=== PATIENT | male | born 1970 ===

== ENCOUNTER 2016-12-25 15:04 | Emergency (ER) | payer SELFPAY ==
[2016-12-25 15:05] VITALS: BMI 29.2
[2016-12-25 15:11] VITALS: RESP 16
[2016-12-25 17:58] VITALS: BP 100/62; PULSE 82; TEMP 98.4; O2SAT 98
--- NOTE | 2016-12-25 18:39 | C.PDOC ---
History Of Present Illness <Maral Wilburn - Last Filed: 12/25/16 19:08> <Marcio Spence - Last Filed: 12/25/16 20:15> Ady Matthews, a 46 year old male, who has a past medical history of bipolar disorder presents to the ED for detox. The patient states that he is depressed and has been drinking everyday and so he needs a detox. Patient's last alcohol consumption was 30 minutes prior to arrival. (Maral Wilburn) History Per: Patient History/Exam Limitations: no limitations Onset/Duration Of Symptoms: Hrs Current Symptoms Are (Timing): Still Present Modifying Factor(s): Alcohol <Maral Wilburn - Last Filed: 12/25/16 19:08> <Marcio Spence - Last Filed: 12/25/16 20:15> Time Seen by Provider: 12/25/16 16:44 Chief Complaint (Nursing): Substance Abuse Past Medical History Reviewed: Historical Data, Nursing Documentation, Vital Signs - Medical History PMH: Anxiety, Bipolar Disorder, Depression Denies: Diabetes, Hepatitis, HIV, HTN, Chronic Kidney Disease, Seizures, Sexually Transmitted Disease Family History: States: Unknown Family Hx - Social History Hx Tobacco Use: No Hx Alcohol Use: Yes Hx Substance Use: No - Immunization History Hx Tetanus Toxoid Vaccination: No Hx Influenza Vaccination: No <Maral Wilburn - Last Filed: 12/25/16 19:08> Review Of Systems Except As Marked, All Systems Reviewed And Found Negative. (Detox) <Maral Wilburn - Last Filed: 12/25/16 19:08> Physical Exam - Physical Exam Appears: Well, Toxic, No Acute Distress Skin: Normal Color, Warm, Dry Head: Atraumatic, Normacephalic, No Tenderness Eye(s): bilateral: Normal Inspection, PERRL, EOMI Ear(s): Bilateral: Normal Nose: Normal Oral Mucosa: Moist Tongue: Normal Appearing Lips: Normal Appearing Teeth: Normal Dentition Gingiva: Normal Appearing Throat: Normal Neck: Normal, Normal ROM, Supple Cardiovascular: Rhythm Regular Respiratory: Normal Breath Sounds, No Wheezing Gastrointestinal/Abdominal: Normal Exam, Bowel Sounds, Soft, No Tenderness, No Guarding, No Rebound Back: Normal Inspection, No CVA Tenderness Extremity: Normal ROM, No Tenderness, Capillary Refill, No Deformity, No Swelling <Maral Wilburn - Last Filed: 12/25/16 19:08> ED Course And Treatment - Laboratory Results Result Diagrams: 12/25/16 19:01 O2 Sat by Pulse Oximetry: 98 (RA) Pulse Ox Interpretation: Normal <Maral Wilburn - Last Filed: 12/25/16 19:08> - Laboratory Results Result Diagrams: 12/25/16 19:01 12/25/16 19:01 <Marcio Spence - Last Filed: 12/25/16 20:15> Medical Decision Making <Maral Wilburn - Last Filed: 12/25/16 19:08> <Marcio Spence - Last Filed: 12/25/16 20:15> Medical Decision Making: Initial Impression: 46 year old male presenting for detox Initial Plan: * Alcohol Serum * Comp Metabolic Panel * Drug Screen * CBC * Urinalysis * Reevaluation Patient well be admitted for detox once medically cleared (Maral Wilburn) Disposition - Disposition Disposition Time: 19:09 <Maral Wilburn - Last Filed: 12/25/16 19:08> Counseled Patient/Family Regarding: Diagnosis - Disposition Disposition Time: 20:15 - POA Present On Arrival: None <Marcio Spence - Last Filed: 12/25/16 20:15> - Disposition Referrals: [facility] [Outside] Condition: STABLE Instructions: Abuse of Alcohol (ED) Forms: [facility] (Serbian) - Clinical Impression Clinical Impression: Alcohol abuse, Bipolar disorder - Scribe Statement The provider has reviewed the documentation as recorded by the Scribe <Maral Wilburn - Last Filed: 12/25/16 19:08> <Marcio Spence - Last Filed: 12/25/16 20:15> - Scribe Statement Macy Hunt All medical record entries made by the Scribe were at my direction and personally dictated by me. I have reviewed the chart and agree that the record accurately reflects my personal performance of the history, physical exam, medical decision making, and the department course for this patient. I have also personally directed, reviewed, and agree with the discharge instructions and disposition. (Maral Wilburn) Physician Patient Turnover Patient Signed Over To: Spence,Marcio R Handoff Comments: Needs to be medically cleared for detox admission. labs- pending <Maral Wilburn - Last Filed: 12/25/16 19:08>
[2016-12-25 19:06] LABS: BASO # 0.1 K/uL (0.0-0.2); BASO % 0.8 % (0.0-2.0); EOS # 0.5 K/uL (0.0-0.7); EOS % 6.9 % (0.0-4.0); HEMOGLOBIN 11.6 g/dL (12.0-18.0); LYMPH % 28.1 % (20.0-40.0); MEAN CELL VOLUME 78.9 fL (80.0-94.0); MEAN CORPUSCULAR HEMOGLOBIN 25.9 pg (27.0-31.0); MEAN CORPUSCULAR HGB CONC 32.8 g/dL (33.0-37.0); MEAN PLATELET VOLUME 7.5 fL (7.2-11.7); MONO # 0.6 K/uL (0.0-0.8); MONO % 7.9 % (0.0-10.0); NEUT % 56.3 % (50.0-75.0); RBC 4.48 Mil/uL (4.40-5.90); RED CELL DISTRIBUTION WIDTH 16.5 % (11.5-14.5)
[2016-12-25 19:14] LABS: ALBUMIN 3.6 g/dL (3.5-5.0)
[2016-12-25 19:17] LABS: ALB/GLOB RATIO 1.1 (1.0-2.1); ALT/SGPT 27 U/L (21-72); AST/SGOT 22 U/L (17-59); BLOOD UREA NITROGEN 7 mg/dL (9-20); GFR AFRICAN-AMERICAN > 60; GFR NON-AFRICAN AMERICAN > 60
[2016-12-25 19:18] LABS: CALCIUM 8.2 mg/dl (8.6-10.4); SQUAMOUS EPITHIAL < 1 /hpf (0-5); URINE BILIRUBIN NEGATIVE (NEGATIVE); URINE BLOOD 2+ (NEGATIVE); URINE CLARITY Clear (Clear); URINE COLOR Yellow (YELLOW); URINE GLUCOSE (UA) NORMAL (Normal); URINE LEUKOCYTE ESTERASE NEG Leu/uL (Negative); URINE NITRATE NEGATIVE (NEGATIVE); URINE PROTEIN NEGATIVE (NEGATIVE); URINE UROBILINOGEN NORMAL mg/dL (0.2-1.0)
[2016-12-25 19:24] LABS: BARBITURATES, UR NEGATIVE (NEGATIVE)
[2016-12-25 19:25] LABS: BENZODIAZEPINES, UR NEGATIVE (NEGATIVE)
[2016-12-25 19:28] LABS: OPIATES, UR NEGATIVE (NEGATIVE)
[2016-12-25 19:29] LABS: PHENCYCLIDINE, UR NEGATIVE (NEGATIVE)
== END 2016-12-25 20:24 | disposition home or self-care (01) ==
LOC: C.ER 15:04
DX: F31.9 Bipolar disorder, unspecified (principal); F10.10 Alcohol abuse, uncomplicated; Y90.2 Blood alcohol level of 40-59 mg/100 ml

== ENCOUNTER 2017-01-15 17:25 | Inpatient (IN) | payer SELFPAY ==
[2017-01-15 17:26] VITALS: BMI 29.2
--- NOTE | 2017-01-15 17:52 | C.PDOC ---
History Of Present Illness 46 y/o male with a history of alcohol abuse, depression, and bipolar disorder, who presents to the ED for psychiatric evaluation. States he has been drinking a lot and feeling like hurting himself, specifically having suicidal thoughts of cutting his wrists. Patient has history of suicide attempt 3 years ago, and was hospitalized at that time. On anti-anxiety and depression medications. PMD: Unknown Time Seen by Provider: 01/15/17 17:37 Chief Complaint (Nursing): Psychiatric Evaluation History Per: Patient History/Exam Limitations: no limitations Onset/Duration Of Symptoms: Days Current Symptoms Are (Timing): Still Present Associated Symptoms: Depression, Suicidal Thoughts Past Medical History Reviewed: Historical Data, Nursing Documentation, Vital Signs Vital Signs: Last Vital Signs Temp 98.2 F 01/15/17 17:32 Pulse 109 H 01/15/17 17:32 Resp 16 01/15/17 17:32 BP 120/72 01/15/17 17:32 Pulse Ox 95 01/15/17 17:56 - Medical History PMH: Anxiety, Bipolar Disorder, Depression Denies: Diabetes, Hepatitis, HIV, HTN, Chronic Kidney Disease, Seizures, Sexually Transmitted Disease Other PMH: Alcohol abuse - [facility] ALCOHOL DETOXIFICATION (01/06/14) DETOXIFICATION SERVICES FOR SUBSTANCE ABUSE TREATMENT (01/14/16) GROUP PSYCHOTHERAPY (01/14/16) INDIV CORPORATE BANKING OFFICER FOR SUBSTANCE ABUSE TREATMENT, BEHAVIORAL (10/23/15) INDIVID PSYCHOTHERAP NEC (08/05/14) INDIVIDUAL PSYCHOTHERAPY, SUPPORTIVE (01/14/16) INJECT/INFUSE NEC (09/26/13) OTHER GROUP THERAPY (08/05/14) PSYCHIAT DRUG THERAP NEC (08/05/14) Family History: States: Unknown Family Hx - Social History Hx Tobacco Use: No Hx Alcohol Use: Yes Hx Substance Use: No - Immunization History Hx Tetanus Toxoid Vaccination: No Hx Influenza Vaccination: No Review Of Systems Except As Marked, All Systems Reviewed And Found Negative. Psych: Positive for: Depression, Suicidal ideation (with plan) Physical Exam - Physical Exam Appears: Well, Non-toxic, No Acute Distress Skin: Normal Color, Warm, Dry Head: Atraumatic, Normacephalic Eye(s): bilateral: Normal Inspection, PERRL, EOMI Oral Mucosa: Moist Neck: Normal ROM, Supple Chest: Symmetrical Cardiovascular: Rhythm Regular, No Murmur Respiratory: Normal Breath Sounds, No Accessory Muscle Use Gastrointestinal/Abdominal: Normal Exam, Bowel Sounds, Soft, No Tenderness Extremity: Bilateral: Atraumatic, Normal ROM Neurological/Psych: Oriented x3, Normal Speech, Normal Motor Gait: Steady ED Course And Treatment - Laboratory Results Result Diagrams: 01/15/17 17:58 01/15/17 17:58 Lab Interpretation: No Acute Changes O2 Sat by Pulse Oximetry: 95 (RA) Pulse Ox Interpretation: Normal Progress Note: Patient is medically cleared for psychiatric admission. Medical Decision Making Medical Decision Making: Time: 17:47 Plan: --CMP --Urine drug screen --Alcohol serum --CBC --Urinalysis Disposition - Disposition Disposition: HOSPITALIZED Disposition Time: 19:18 Condition: STABLE Forms: [facility] (Polish) - Clinical Impression Clinical Impression: Bipolar disorder, Depressed, Alcohol abuse, Suicidal ideation - Scribe Statement The provider has reviewed the documentation as recorded by the Scribcarlotta Rush All medical record entries made by the Scribe were at my direction and personally dictated by me. I have reviewed the chart and agree that the record accurately reflects my personal performance of the history, physical exam, medical decision making, and the department course for this patient. I have also personally directed, reviewed, and agree with the discharge instructions and disposition.
[2017-01-15 18:02] LABS: BASO # 0.1 K/uL (0.0-0.2); BASO % 0.7 % (0.0-2.0); EOS # 0.5 K/uL (0.0-0.7); EOS % 6.6 % (0.0-4.0); HEMATOCRIT 36.3 % (35.0-51.0); LYMPH # 2.3 K/uL (1.0-4.3); LYMPH % 29.3 % (20.0-40.0); MEAN CELL VOLUME 78.6 fL (80.0-94.0); MEAN CORPUSCULAR HEMOGLOBIN 26.1 pg (27.0-31.0); MEAN CORPUSCULAR HGB CONC 33.2 g/dL (33.0-37.0); MEAN PLATELET VOLUME 7.7 fL (7.2-11.7); MONO # 0.8 K/uL (0.0-0.8); MONO % 9.8 % (0.0-10.0); RED CELL DISTRIBUTION WIDTH 16.2 % (11.5-14.5); WHITE BLOOD COUNT 7.9 K/uL (4.8-10.8)
[2017-01-15 18:06] LABS: URINE BILIRUBIN NEGATIVE (NEGATIVE); URINE BLOOD 1+ (NEGATIVE); URINE COLOR Colorless (YELLOW); URINE GLUCOSE (UA) NORMAL (Normal); URINE KETONE NEGATIVE (NEGATIVE); URINE LEUKOCYTE ESTERASE NEG Leu/uL (Negative); URINE PROTEIN NEGATIVE (NEGATIVE); URINE UROBILINOGEN NORMAL mg/dL (0.2-1.0)
[2017-01-15 18:11] LABS: CHLORIDE 102 mmol/L (98-107); SODIUM 141 mmol/L (132-148)
[2017-01-15 18:12] LABS: POTASSIUM 3.6 mmol/L (3.6-5.2)
[2017-01-15 18:14] LABS: ALB/GLOB RATIO 1.1 (1.0-2.1); ALKALINE PHOSPHATASE 94 U/L (38-126); ALT/SGPT 34 U/L (21-72); AST/SGOT 25 U/L (17-59); BILIRUBIN,TOTAL 0.4 mg/dL (0.2-1.3); BLOOD UREA NITROGEN 9 mg/dL (9-20); CARBON DIOXIDE 20 mmol/L (22-30); GFR AFRICAN-AMERICAN > 60; GLUCOSE,RANDOM 89 mg/dL (75-110); TOTAL PROTEIN 7.3 g/dL (6.3-8.3)
[2017-01-15 18:15] LABS: ALCOHOL SERUM 133 mg/dl (0-10)
[2017-01-16] MEDS: Multiple Vitamins Tab PO SCH (11:11)
--- NOTE | 2017-01-16 11:47 | PCM.PSYCH ---
Initial Psychiatric Evaluation - Initial Psychiatric Evaluation Type of Admission: Voluntary Legal Status: Capacity Chief Complaint (in patient's own words): I was hearing voices' History of Present Illness and Precipitating Events: Pt. is a 46 years old male, single, unemployed, who came to the hospital because of alcohol dependence, suicidal ideation, and auditory hallucinations. Pt. remained disorganized and internally preoccupied throughout the interview. He remained a poor historian and was superficially cooperative but guarded about the details. Patient reported auditory hallucinations for the past 3-6 months (voices laughing at him) and visual hallucinations (shadows staring at him).Patient revealed plan to use prescribed medications and alcohol "to cause a heart attack". Patient reports history of multiple inpatient psychiatric hospitalizations, he was last discharge from [facility] a year ago. He reports history of follow-up with [facility]. He reports that he was drinking 4-10 beers on a daily basis. Yesterday he consumed almost 8 beers and became increasingly depressed and suicidal ideation so he came to the hospital to get help. Patient remained depressed and irritable during the interview. He appeared paranoid and delusional. He reports depressed mood and feelings of hopelessness and helplessness, poor sleep and poor appetite. He appeared disheveled and unkempt. He reports withdrawal symptoms from drinking including shakes, headaches, nausea, sweating and anxiety. He denies any other substance abuse. Past medical history None reported Current Medications: Active Medications Generic Name Dose Route Start Last Admin Trade Name Freq PRN Reason Stop Dose Admin Benztropine Mesylate 2 mg 01/16/17 10:21 Cogentin PO Q6 PRN Extra Pyramidal Symptoms Chlordiazepoxide 25 mg 01/16/17 10:19 Librium PO Q4H PRN Alcohol Withdrawal Chlordiazepoxide 25 mg 01/16/17 12:00 01/16/17 11:11 Librium PO 01/20/17 11:59 25 mg Q6H EMILIA Administration Taper Clonidine HCl 0.1 mg 01/16/17 10:19 Catapres PO Q4H PRN Symptoms of alcohol withdrawl Diphenhydramine HCl 50 mg 01/16/17 10:21 Benadryl PO Q6 PRN Extra Pyramidal Symptoms Folic Acid 1 mg 01/16/17 10:30 01/16/17 11:11 Folic Acid PO 1 mg DAILY EMILIA Administration Haloperidol 5 mg 01/16/17 10:21 Haldol PO Q8 PRN Moderate Agitation Multivitamins 1 tab 01/16/17 10:30 01/16/17 11:11 Hexavitamin PO 1 tab DAILY EMILIA Administration Thiamine HCl 100 mg 01/16/17 10:30 01/16/17 11:11 Vitamin B1 Tab PO 100 mg DAILY EMILIA Administration Trazodone HCl 50 mg 01/16/17 10:19 Desyrel PO HS PRN Insomnia Trazodone HCl 50 mg 01/16/17 22:00 Desyrel PO HS EMILIA Past Psychiatric History - Past Psychiatric History Previous Treatment History: Inpatient Pertinent Medical Hx (Current Medical&Sleep Prob, Allergies): Allergies Allergy/AdvReac Type Severity Reaction Status Date / Time No Known Allergies Allergy Verified 01/15/17 17:46 Prazosin HCl [Minipress] 1 mg PO HS #30 cap 11/12/15 QUEtiapine [Seroquel] 25 mg PO HS #30 tab 11/12/15 Gabapentin [Neurontin] 300 mg PO TID #0 cap 01/21/16 Haloperidol [Haldol] 10 mg PO BID #0 tab 01/21/16 Sertraline [Zoloft] 100 mg PO DAILY #0 tab 01/21/16 traZODone [Desyrel] 100 mg PO HS PRN #0 tab 01/21/16 Review of Systems - Review of Systems All systems: reviewed and no additional remarkable complaints except - Psychiatric Psychiatric: Anxiety, Auditory Hallucinations, Irritability, Paranoia, Suicidal Ideation, Visual Hallucinations Mental Status Examination - Personal Presentation Personal Presentation: Looks stated age - Affect Affect: Constricted, Depressed - Motor Activity Motor Activity: Calm - Reliability in Providing Information Reliability in Providing Information: Good - Speech Speech: Organized - Mood Mood: Depressed, Anxious - Formal Thought Process Formal Thought Process: Hallucinations, Delusions, Paranoia - Hallucinations/Delusions Hallucinations: Visual, Auditory Delusions: Persecution - Obsessions/Compulsions Obsessions: No Compulsions: No - Cognitive Functions Orientation: Person, Place, Situation, Time Sensorium: Alert Attention/Concentration: Easily distracted Abstract Thinking: [place] Estimate of Intelligence: Below average Judgement: Imparied, as evidence by: Poor judgement, Imparied, as evidence by: Lack of insight into illness - Risk Risk: Suicidal, Withdrawal, Diminished functioning - Strength & Assets Inventory Strength & Assets Inventory: Intelligence - Limitations Limitations: Living alone DSM 5 DX - DSM 5 DSM 5 Diagnosis: Bipolar disorder mixed severe with psychotic features Alcohol use disorder severe Alcohol withdrawal - Recommended/Plan of Treatment Treatment Recommendations and Plan of Treatment: Bipolar disorder mixed severe with psychotic features CBT Psychoeducation Supportive therapy, group therapy, individual therapy Haldol 5 mg by mouth daily at bedtime Neurontin 100 mg by mouth 3 times a day Trazodone 50 mg by mouth daily at bedtime Paxil 10 mg daily Alcohol use disorder severe Alcohol withdrawal CBT Psychoeducation Supportive therapy, individual therapy Use [place] for abstinence Librium when necessary Start Librium taper Start folic acid/thiamine/multivitamin - Smoking Cessation Smoking Cessation Initiated: No
[2017-01-17 08:20] VITALS: O2SAT 99
[2017-01-17] MEDS: Multiple Vitamins Tab PO SCH (09:50)
[2017-01-18] MEDS: Multiple Vitamins Tab PO SCH (09:57)
--- NOTE | 2017-01-18 12:15 | PCM.BM ---
<Romina Smith - Last Filed: 01/18/17 12:14> Treatment assets and liabiliti Patient Assests: cooperative, ADL independent, good past tx response, cognitively intact Patient Liabilities: substance abuse - Milieu Protocol Maintain good personal hygiene: daily Encourage regular showers Maintain personal safety: every shift Educate patient to report safety concerns to staff, every shift Monitor environment for contraband/sharps Medication safety: Monitor for expected outcome, potential side effects: every shift, Assess barriers to learning: every shift, Assess readiness for medication education: every shift Milieu Narrative: Bipolar disorder mixed severe with psychotic features CBT Psychoeducation Supportive therapy, group therapy, individual therapy Haldol 5 mg by mouth daily at bedtime Neurontin 100 mg by mouth 3 times a day Trazodone 50 mg by mouth daily at bedtime Paxil 10 mg daily Alcohol use disorder severe Alcohol withdrawal CBT Psychoeducation Supportive therapy, individual therapy Use [place] for abstinence Librium when necessary Start Librium taper Start folic acid/thiamine/multivitamin Discharge/Continuing Care - Treatment Team Participation Patient/Family/SO Statement: Bipolar disorder mixed severe with psychotic features CBT Psychoeducation Supportive therapy, group therapy, individual therapy Haldol 5 mg by mouth daily at bedtime Neurontin 100 mg by mouth 3 times a day Trazodone 50 mg by mouth daily at bedtime Paxil 10 mg daily Alcohol use disorder severe Alcohol withdrawal CBT Psychoeducation Supportive therapy, individual therapy Use [place] for abstinence Librium when necessary Start Librium taper Start folic acid/thiamine/multivitamin <Steffi Moeller - Last Filed: 01/19/17 11:35> Family Contact Family involvement: Family/SO is involved Family contact: Patient declines to allow family contact at present - Goals for Treatment Patient goals for treatment: "I [facility] to go back to the [facility] Discharge/Continuing Care - Education Needs Education Needs: Patient Medication, Patient Coping Skills - Discharge Discharge Criteria: Tolerates medication w/o severe side effects, No longer exhibiting s/s of withdrawal Discharge to:: Home, With Family - Treatment Team Participation Discussed with Family/SO: No Was Patient/Family/SO present at Treatment Team Meeting: Yes <Hank Santana - Last Filed: 01/20/17 00:24> - Diagnosis (1) Bipolar affective disorder, manic, severe, with psychotic behavior Status: Acute Interventions: 01/20/17 00:24 * Assess/adjust medications daily and /or as needed * See patient on an individual basis 7x/week to assess level of manic behaviors and stability * Discuss risks, benefits, side effects and alternatives of medications * (2) Alcohol dependence Status: Acute Interventions: 01/20/17 00:24 * Assess 7x/week regarding severity of withdrawal * Educate regarding risks, benefits, side effects and alternatives of medications * Use Motivational Interviewing for abstinence * Use CBT for relapse prevention * Medication management for withdrawal symptoms * Encourage medication assisted treatment *
[2017-01-19 07:40] VITALS: RESP 19
[2017-01-19] MEDS: Multiple Vitamins Tab PO SCH (10:37)
--- NOTE | 2017-01-19 10:51 | PCM.PYCHPN ---
Psychiatric Progress Note - Psychiatric Progress Note Patient seen today, length of contact: 16 min Patient Chief Complaint: I was hearing voices' Problems Identified/Issues Discussed: Patient seen and evaluated, chart reviewed and discussed with the nurse. Supportive therapy and psychoeducation were given. Patient remained disorganized and internally preoccupied. Patient was pacing back and forth in his room and still reports auditory hallucinations, command type. Patient reports depressed mood and feelings of hopelessness and helplessness. He still reports withdrawal symptoms including, cramps, nausea, anxiety, sweating and headaches. He is taking the medications and denies any side effects. Medication Change: Yes (librium taper) Medical Record Reviewed: Yes Mental Status Examination - Cognitive Function Orientation: Person, Place, Situation, Time Memory: Intact Attention: Poor Concentration: Poor Association: Loose Fund of Knowledge: Poor - Mood Mood: Depressed, Anxious - Affect Affect: Constricted, Depressed - Speech Speech: Soft - Formal Thought Process Formal Thought Process: Hallucinations, Delusions, Paranoia - Suicidal Ideation Suicidal Ideation: No - Homicidal Ideation Homicidal Ideation: No Goal/Treatment Plan - Goal/Treatment Plan Need for Continued Stay: Discharge may exacerbated symptoms, Severe functional impairment Progress Toward Problem(s) and Goals/Treatment Plan: Bipolar disorder mixed severe with psychotic features CBT Psychoeducation Supportive therapy, group therapy, individual therapy Haldol 5 mg by mouth daily at bedtime Neurontin 100 mg by mouth 3 times a day Trazodone 50 mg by mouth daily at bedtime Paxil 10 mg daily Alcohol use disorder severe Alcohol withdrawal CBT Psychoeducation Supportive therapy, individual therapy Use [place] for abstinence Librium when necessary Start Librium taper Start folic acid/thiamine/multivitamin - Smoking Cessation Smoking Cessation Initiated: No
--- NOTE | 2017-01-19 10:51 | PCM.PYCHPN ---
Psychiatric Progress Note - Psychiatric Progress Note Patient seen today, length of contact: 16 min Patient Chief Complaint: I am feeling little better' Problems Identified/Issues Discussed: Patient seen and evaluated, chart reviewed and discussed with the nurse. As per the staff, pt patient appears more organized and less depressed than before. He reports improvement in his depressed mood, and reports some improvement in the voices. He reports that medications are working but still reports withdrawal symptoms including nausea, sweating and headaches. He remained isolated but he is taking the medications and denies any side effects. He needs some time for stabilization. Supportive therapy and psychoeducation were given. Medication Change: Yes (increase haldol, increase paxil) Medical Record Reviewed: Yes Mental Status Examination - Cognitive Function Orientation: Person, Place, Situation, Time Memory: Intact Attention: WNL Concentration: WNL Association: WNL Fund of Knowledge: WNL - Mood Mood: Depressed, Anxious - Affect Affect: Constricted, Depressed - Formal Thought Process Formal Thought Process: Paranoia - Suicidal Ideation Suicidal Ideation: No - Homicidal Ideation Homicidal Ideation: No Goal/Treatment Plan - Goal/Treatment Plan Need for Continued Stay: Discharge may exacerbated symptoms, Severe functional impairment Progress Toward Problem(s) and Goals/Treatment Plan: Bipolar disorder mixed severe with psychotic features CBT Psychoeducation Supportive therapy, group therapy, individual therapy Haldol 10 mg by mouth BID Neurontin 100 mg by mouth 3 times a day Trazodone 50 mg by mouth daily at bedtime Paxil 20 mg daily Alcohol use disorder severe Alcohol withdrawal CBT Psychoeducation Supportive therapy, individual therapy Use [place] for abstinence Librium when necessary Librium taper Folic acid/thiamine/multivitamin - Smoking Cessation Smoking Cessation Initiated: No
--- NOTE | 2017-01-19 10:51 | PCM.PYCHPN ---
Psychiatric Progress Note - Psychiatric Progress Note Patient seen today, length of contact: 16 min Patient Chief Complaint: I am still feeling depressed.' Problems Identified/Issues Discussed: Patient seen and evaluated, chart reviewed and discussed with the nurse. Today patient appeared more organized and less internally preoccupied than yesterday. He reports some improvement in his depressed mood, sleep and appetite. He reports some improvement in the auditory hallucinations however, he still reports feelings of hopelessness and helplessness. He still reports withdrawal symptoms including nausea, sweating and headaches. He is taking the medications and denies any side effects. He needs some time for stabilization. Supportive therapy and psychoeducation were given. Medication Change: Yes (librium taper, increase haldol) Medical Record Reviewed: Yes Mental Status Examination - Cognitive Function Orientation: Person, Place, Situation, Time Memory: Intact Attention: WNL Concentration: Poor Association: Loose Fund of Knowledge: WNL - Mood Mood: Depressed, Anxious - Affect Affect: Constricted, Depressed - Speech Speech: Soft - Formal Thought Process Formal Thought Process: Hallucinations, Delusions, Paranoia - Suicidal Ideation Suicidal Ideation: No - Homicidal Ideation Homicidal Ideation: No Goal/Treatment Plan - Goal/Treatment Plan Need for Continued Stay: Discharge may exacerbated symptoms, Severe functional impairment Progress Toward Problem(s) and Goals/Treatment Plan: Bipolar disorder mixed severe with psychotic features CBT Psychoeducation Supportive therapy, group therapy, individual therapy Haldol 10 mg by mouth daily at bedtime Neurontin 100 mg by mouth 3 times a day Trazodone 50 mg by mouth daily at bedtime Paxil 10 mg daily Alcohol use disorder severe Alcohol withdrawal CBT Psychoeducation Supportive therapy, individual therapy Use [place] for abstinence Librium when necessary Start Librium taper Start folic acid/thiamine/multivitamin - Smoking Cessation Smoking Cessation Initiated: No
[2017-01-20 07:44] VITALS: BP 103/67; PULSE 70; TEMP 98.1
--- NOTE | 2017-01-20 09:28 | PCM.PYCHDC ---
Mental Status Examination - Mental Status Examination Orientation: Person, Place, Situation, Time Memory: Intact Mood: Anxious Affect: Constricted Speech: Appropriate Attention: WNL Concentration: WNL Association: WNL Fund of Knowledge: WNL Formal Thought Process: No Impairment Suicidal Ideation: No Current Homicidal Ideation?: No Discharge Summary - Discharge Note Reason for Hospitalization: Depressed, angela ideation Consultations:: List each consultation separately and include: 1. Reason for request. 2. Findings. 3. Follow-up Summary of Hospital Course include:: 1. Description of specific treatment plan utilized for patients during their course of treatmen. 2. Summarize the time- course for resolution of acute symptoms and/or regressed behaviors. 3. Describe issues identified and worked on during hospitalization. 4. Describe medication utilized. 5. Describe medical problems identified and treated. 6. Reassessment of suicide risk Summary of Hospital Course: The pt was admitted and started on treatment with psychotherapy, support, psychoeducation and medications. [place] and CBT used. The pt attended groups and activities, as well as milieu therapy. All the risks and benefits of medications are discussed and the patient understood and agreed. After care discussed with the patient. He will attend [facility] The patient improved with the treatment provided and discharged as planned. - Final Diagnosis (DSM 5) Condition upon Discharge: STABLE DSM 5: Bipolar disorder mixed severe with psychotic features Alcohol use disorder severe Alcohol withdrawal Disposition: HOME/ ROUTINE Follow-up Treatment Plan: Continue below medications after discharge. Follow after care plan as discussed above. Use relapse prevention skills. Return to ER or call 911 if suicidal, homicidal or symptoms relapse. Stay away from stress, alcohol and drugs. Use relaxation techniques. See primary doctor once a year and get labs. Consider MAT Prescriptions/Medication Reconciliation: Gabapentin [Neurontin] 300 mg PO BID #60 cap Naltrexone [Revia] 50 mg PO DAILY #30 tab PARoxetine [Paxil] 20 mg PO DAILY #30 tab traZODone [Desyrel] 50 mg PO HS PRN #30 tab PRN Reason: Insomnia - Smoking Cessation Smoking Cessation Medication prescribed: No - Antipsychotic Medications Pt discharged on 2 or more routine antipsychotic medications: No
[2017-01-20] MEDS: Multiple Vitamins Tab PO SCH (10:40)
== END 2017-01-20 12:00 | disposition home or self-care (01) | DRG 750 ==
LOC: C.ER 17:25 → C.9E 19:18 → C.5E 20:10
PROVIDERS: ADMIT Psychiatry & Neurology Psychiatry; ATTEND Psychiatry & Neurology Psychiatry
PROC: HZ2ZZZZ Detoxification Services for Substance Abuse Treatment (ICD-10-PCS; principal; 2017-01-15)
PROC: HZ42ZZZ Group Counseling for Substance Abuse Treatment, Cognitive-Behavioral (ICD-10-PCS; 2017-01-15)
PROC: HZ52ZZZ Individual Psychotherapy for Substance Abuse Treatment, Cognitive-Behavioral (ICD-10-PCS; 2017-01-15)
PROC: HZ59ZZZ Individual Psychotherapy for Substance Abuse Treatment, Supportive (ICD-10-PCS; 2017-01-15)
PROC: HZ56ZZZ Individual Psychotherapy for Substance Abuse Treatment, Psychoeducation (ICD-10-PCS; 2017-01-15)
PROC: HZ46ZZZ Group Counseling for Substance Abuse Treatment, Psychoeducation (ICD-10-PCS; 2017-01-15)
DX: F10.230 Alcohol dependence with withdrawal, uncomplicated (principal); F31.64 Bipolar disorder, current episode mixed, severe, with psychotic features; R45.851 Suicidal ideations; F41.9 Anxiety disorder, unspecified; Y90.6 Blood alcohol level of 120-199 mg/100 ml

== ENCOUNTER 2017-11-22 17:43 | Inpatient (IN) | payer SELFPAY ==
[2017-11-22 17:43] VITALS: BMI 29.2
--- NOTE | 2017-11-22 19:46 | C.PDOC ---
History Of Present Illness 47 year old male presents to the ER with acute ETOH intoxication. Denies suicidal ideation or homicidal ideation. Time Seen by Provider: 11/22/17 19:17 Chief Complaint (Nursing): Substance Abuse History Per: Patient History/Exam Limitations: no limitations Onset/Duration Of Symptoms: Hrs Current Symptoms Are (Timing): Still Present Suicide/Self Injury Attempted (Context): None Modifying Factor(s): Alcohol Associated Symptoms: denies: Suicidal Thoughts, Other (Homicidal ideation) Involuntary Hold By: None Recent travel outside of the [place]: No Past Medical History Reviewed: Historical Data, Nursing Documentation, Vital Signs Vital Signs: Last Vital Signs Temp 98.8 F 11/22/17 18:08 Pulse 84 11/22/17 18:08 Resp 16 11/22/17 18:08 BP 109/69 11/22/17 18:08 Pulse Ox 97 11/23/17 00:13 - Medical History PMH: Anxiety, Bipolar Disorder, Depression - [facility] Procedures ALCOHOL DETOXIFICATION (01/06/14) DETOXIFICATION SERVICES FOR SUBSTANCE ABUSE TREATMENT (01/15/17) GROUP PLASTIC CARD GRADER CARDROOM FOR SUBSTANCE ABUSE TREATMENT, PSYCHOEDUCATION (01/15/17) GROUP PLASTIC CARD GRADER CARDROOM FOR SUBSTANCE ABUSE, COGNITIVE BEHAVIORAL (01/15/17) GROUP PSYCHOTHERAPY (01/14/16) INDIV PLASTIC CARD GRADER CARDROOM FOR SUBSTANCE ABUSE TREATMENT, BEHAVIORAL (10/23/15) INDIV PSYCHOTHERAPY FOR SUBSTANCE ABUSE TREATMENT, SUPPORT (01/15/17) INDIV PSYCHOTHERAPY FOR SUBSTANCE ABUSE, COGNITIV BEHAVIORAL (01/15/17) INDIV PSYCHOTHERAPY FOR SUBSTANCE ABUSE, PSYCHOEDUCATION (01/15/17) INDIVID PSYCHOTHERAP NEC (08/05/14) INDIVIDUAL PSYCHOTHERAPY, SUPPORTIVE (01/14/16) INJECT/INFUSE NEC (09/26/13) OTHER GROUP THERAPY (08/05/14) PSYCHIAT DRUG THERAP NEC (08/05/14) Family History: States: Unknown Family Hx - Social History Hx Tobacco Use: No Hx Alcohol Use: Yes Hx Substance Use: No - Immunization History Hx Tetanus Toxoid Vaccination: No Hx Influenza Vaccination: No Review Of Systems Except As Marked, All Systems Reviewed And Found Negative. Constitutional: Positive for: Other (ETOH intoxication). Negative for: Fever, Chills Cardiovascular: Negative for: Chest Pain, Palpitations Respiratory: Negative for: Cough, Shortness of Breath Psych: Negative for: Suicidal ideation, Other (Homicidal ideation) Physical Exam - Physical Exam Appears: Non-toxic, Other (ETOH on breath) Skin: Normal Color, Warm, Dry Head: Atraumatic, Normacephalic Eye(s): bilateral: Normal Inspection Oral Mucosa: Moist Neck: Normal, Supple Chest: Symmetrical, No Tenderness Cardiovascular: Rhythm Regular Respiratory: Normal Breath Sounds, No Rales, No Rhonchi, No Wheezing Gastrointestinal/Abdominal: Soft, No Tenderness Back: No CVA Tenderness Extremity: Normal ROM (x4) Neurological/Psych: Oriented x3, Normal Speech ED Course And Treatment - Laboratory Results Result Diagrams: 11/22/17 21:19 11/22/17 21:19 O2 Sat by Pulse Oximetry: 97 (Room air) Pulse Ox Interpretation: Normal Medical Decision Making Medical Decision Making: Plan: * Blood work * Urinalysis Assessment: ETOH intoxication Patient medically clear for crisis eval discussed with dr. Trejo and will admit to detox Disposition Discussed With Dr.: Dale Trejo Doctor Will See Patient In The: Hospital Counseled Patient/Family Regarding: Studies Performed, Diagnosis - Disposition Disposition: HOSPITALIZED Disposition Time: 00:12 Condition: FAIR Forms: [employer] ([place]) - Clinical Impression Clinical Impression: Alcohol abuse - Scribe Statement The provider has reviewed the documentation as recorded by the Scribe Tyler Bajwa All medical record entries made by the Scribe were at my direction and personally dictated by me. I have reviewed the chart and agree that the record accurately reflects my personal performance of the history, physical exam, medical decision making, and the department course for this patient. I have also personally directed, reviewed, and agree with the discharge instructions and disposition.
[2017-11-22 21:25] LABS: URINE BILIRUBIN NEGATIVE (NEGATIVE); URINE BLOOD 1+ (NEGATIVE); URINE CLARITY Clear (Clear); URINE COLOR Straw (YELLOW); URINE GLUCOSE (UA) NORMAL (Normal); URINE LEUKOCYTE ESTERASE NEG Leu/uL (Negative); URINE PROTEIN NEGATIVE (NEGATIVE); URINE UROBILINOGEN NORMAL mg/dL (0.2-1.0)
[2017-11-22 21:29] LABS: BASO % 0.7 % (0.0-2.0); EOS # 0.3 K/uL (0.0-0.7); EOS % 5.1 % (0.0-4.0); HEMOGLOBIN 11.7 g/dL (12.0-18.0); LYMPH # 1.9 K/uL (1.0-4.3); MEAN CELL VOLUME 80.3 fL (80.0-94.0); MEAN CORPUSCULAR HGB CONC 33.6 g/dL (33.0-37.0); MEAN PLATELET VOLUME 7.2 fL (7.2-11.7); MONO # 0.5 K/uL (0.0-0.8); MONO % 8.7 % (0.0-10.0); NEUT # 3.3 K/uL (1.8-7.0); NEUT % 54.5 % (50.0-75.0); RBC 4.35 Mil/uL (4.40-5.90); RED CELL DISTRIBUTION WIDTH 15.3 % (11.5-14.5); WHITE BLOOD COUNT 6.1 K/uL (4.8-10.8)
[2017-11-22 21:33] LABS: BARBITURATES, UR NEGATIVE (NEGATIVE); BENZODIAZEPINES, UR NEGATIVE (NEGATIVE); OPIATES, UR NEGATIVE (NEGATIVE); PHENCYCLIDINE, UR NEGATIVE (NEGATIVE)
[2017-11-22 21:38] LABS: ALB/GLOB RATIO 1.3 (1.0-2.1); ALBUMIN 4.1 g/dL (3.5-5.0); ALT/SGPT 30 U/L (21-72); AST/SGOT 31 U/L (17-59); BLOOD UREA NITROGEN 8 mg/dL (9-20); CALCIUM 8.6 mg/dl (8.6-10.4); GFR AFRICAN-AMERICAN > 60; GFR NON-AFRICAN AMERICAN > 60
--- NOTE | 2017-11-23 00:48 | PCM.BM ---
<Mary Georges M - Last Filed: 11/23/17 00:46> Treatment Plan Problems - Problems identified on initial assessmt Ineffective Coping Skills Date Initiated: 11/23/17 Time Initiated: 00:47 Assessment reference: NA Status: Active Treatment assets and liabiliti Patient Assests: cooperative, ADL independent, good past tx response, cognitively intact Patient Liabilities: substance abuse - Milieu Protocol Maintain good personal hygiene: daily Encourage regular showers, daily Remind patient to perform daily oral care, other Assist patient to perform ADL's Maintain personal safety: every shift Educate patient to report safety concerns to staff, every shift Monitor environment for contraband/sharps Medication safety: Monitor for expected outcome, potential side effects: every shift, Assess barriers to learning: every shift, Assess readiness for medication education: every shift <Dale Trejo M - Last Filed: 11/24/17 15:03> - Diagnosis (1) Alcohol use disorder, severe, dependence Status: Acute Interventions: 11/24/17 15:02 * Assess 7x/week regarding severity of withdrawal * Educate regarding risks, benefits, side effects and alternatives of medications * Use Motivational Interviewing for abstinence * Use CBT for relapse prevention * Medication management for withdrawal symptoms * Encourage medication assisted treatment (2) Bipolar disorder (manic depression) Status: Acute Interventions: 11/24/17 15:03 * Assess/adjust medications daily and /or as needed * See patient on an individual basis 7x/week to assess symptoms of depression * Monitor for side effects & effectiveness of medications
[2017-11-23] MEDS: Multiple Vitamins Tab PO SCH (09:11)
--- NOTE | 2017-11-23 10:34 | PCM.PSYCH ---
Initial Psychiatric Evaluation - Initial Psychiatric Evaluation Type of Admission: Voluntary Legal Status: Capacity Chief Complaint (in patient's own words): "I want to be sober" History of Present Illness and Precipitating Events: Pt was seen and evaluated by using spanish interpreter/translator # [id number]. This is a 47 year old male, male with pshx of Bipolar d/o, is admitted for Alcohol detox. His BAL was 18 in the ER. Pt drinks 3-4 cans of 24 oz of beer on a daily basis. He stated he start drinking at the age of 35. drinking alcohol is now problematic. CAGE questionnaire was positive. He reported etoh withdrawal symptoms including tremors, hot and cold sweats, flushes, headache, Nausea. He had one detox in the past. After detox treatment completion, he would like to continue AA meeting with sponsor and f/u with CRC. He denied smoking marijuana or other illicit drugs. Pt stated that his bipolar depression is stable and he would like to continue his home meds. He denied depressive, manic and anxiety symptoms. He denied perceptual disturbances. 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 His son is living in [place] with his and children. He has good social support. Pt's meds at the time of d/c on 12/2016 Gabapentin [Neurontin] 300 mg PO BID #60 cap Naltrexone [Revia] 50 mg PO DAILY #30 tab PARoxetine [Paxil] 20 mg PO DAILY #30 tab traZODone [Desyrel] 50 mg PO HS PRN #30 tab Current Medications: Active Medications Generic Name Dose Route Start Last Admin Trade Name Jing PRN Reason Stop Dose Admin Acetaminophen 650 mg 11/23/17 00:54 Tylenol 325mg Tab PO Q6 PRN Pain, moderate (4-7) Chlordiazepoxide 25 mg 11/23/17 06:00 11/23/17 05:19 Librium PO 11/27/17 05:59 Not Given Q6 EMILIA Taper Chlordiazepoxide 25 mg 11/23/17 00:57 Librium PO Q4H PRN Alcohol Withdrawal Clonidine HCl 0.1 mg 11/23/17 00:52 Catapres PO Q6H PRN WITHDRAWAL SYMPTOMS Folic Acid 1 mg 11/23/17 10:00 11/23/17 09:11 Folic Acid PO 1 mg DAILY EMILIA Administration Hydroxyzine HCl 25 mg 11/23/17 00:53 Atarax PO Q6H PRN Agitation Multivitamins 1 tab 11/23/17 10:00 11/23/17 09:11 Hexavitamin PO 1 tab DAILY EMILIA Administration Ondansetron HCl 4 mg 11/23/17 00:55 Zofran Odt PO Q8H PRN Nausea/Vomiting Thiamine HCl 100 mg 11/23/17 10:00 11/23/17 09:11 Vitamin B1 Tab PO 100 mg DAILY EMILIA Administration Trazodone HCl 50 mg 11/23/17 00:54 Desyrel PO HS PRN Insomnia Past Psychiatric History - Past Psychiatric History Previous Treatment History: Inpatient Prior Psychiatric Treatment: medication management for Bipolar etoh abuse At [facility]: [place] in 12/2016 History of Abuse: denied History of ETOH/Drug Use: please see HPI History of Family Illness: denied Pertinent Medical Hx (Current Medical&Sleep Prob, Allergies): Allergies Allergy/AdvReac Type Severity Reaction Status Date / Time No Known Allergies Allergy Verified 11/22/17 18:08 Prazosin HCl [Minipress] 1 mg PO HS #30 cap 11/12/15 QUEtiapine [Seroquel] 25 mg PO HS #30 tab 11/12/15 Gabapentin [Neurontin] 300 mg PO TID #0 cap 01/21/16 Haloperidol [Haldol] 10 mg PO BID #0 tab 01/21/16 Sertraline [Zoloft] 100 mg PO DAILY #0 tab 01/21/16 traZODone [Desyrel] 100 mg PO HS PRN #0 tab 01/21/16 Gabapentin [Neurontin] 300 mg PO BID #60 cap 01/20/17 Naltrexone [Revia] 50 mg PO DAILY #30 tab 01/20/17 PARoxetine [Paxil] 20 mg PO DAILY #30 tab 01/20/17 traZODone [Desyrel] 50 mg PO HS PRN #30 tab 01/20/17 denied Review of Systems - Review of Systems All systems: reviewed and no additional remarkable complaints except (please see HPI) Mental Status Examination - Personal Presentation Personal Presentation: Looks stated age, Dressed appropriate to season - Affect Affect: Constricted - Motor Activity Motor Activity: Psychomotor Agitation - Reliability in Providing Information Reliability in Providing Information: Fair - Speech Speech: Organized - Mood Mood: Anxious - Formal Thought Process Formal Thought Process: No Impairment - Hallucinations/Delusions Delusions: Other (none reported) - Obsessions/Compulsions Obsessions: None Compulsions: None - Cognitive Functions Orientation: Person, Place, Situation, Time Sensorium: Alert Attention/Concentration: Attentive Abstract Thinking: [place] Estimate of Intelligence: Average Judgement: Intact, as evidence by: Good judgement, Intact, as evidence by: Insight regarding need for hospitalization Memory: Recent intact, as evidence by: Ability to recall events of the day - Risk Risk: Withdrawal - Strength & Assets Inventory Strength & Assets Inventory: Intelligence, Family support, Life experience, Cooperative - Limitations Limitations: Other (chronic alcohol use ) DSM 5 DX - DSM 5 DSM 5 Diagnosis: Alcohol use disorder, severe, dependence Alcohol withdrawal Bipolar disorder - Recommended/Plan of Treatment Treatment Recommendations and Plan of Treatment: Librium detox Gabapentin for augmentation Continue home meds As needed meds and vitamins Attend groups and activities [place] for abstinence and CBT for relapse prevention Support and psychoeducation Consider and encourage MAT Refer to after care 33 min Projected ELOS: 5 days Prognosis: good - Smoking Cessation Smoking Cessation Initiated: Yes
[2017-11-24] MEDS: Multiple Vitamins Tab PO SCH (09:26)
--- NOTE | 2017-11-24 15:01 | PCM.PYCHPN ---
Psychiatric Progress Note - Psychiatric Progress Note Patient seen today, length of contact: 15 minutes Patient Chief Complaint: I'm feeling better Problems Identified/Issues Discussed: Patient seen, chart reviewed, case discussed with the staff. Issues related to illness and treatment were discussed with the patient and staff. Reported compliant with treatment with no adverse affects. Tolerating treatment very well. Risk and benefits of medications were discussed with the patient patient understood and agreed. Reported feeling little better. Calm and cooperative, speech soft with good eye contact. Awake alert oriented 3, denied any delusions, any auditory of visual hallucinations, no suicidal ideations or homicidal ideations at the time of evaluation. Aftercare discussed with the patient. Medical Problems: None reported Diagnostic Results: Reviewed DSM 5 Symptoms Update: Some improvement with treatment Medication Change: No Medical Record Reviewed: Yes Mental Status Examination - Cognitive Function Orientation: Person, Place, Situation, Time Memory: Intact Attention: WNL Concentration: WNL Association: WN Fund of Knowledge: [facility] Decription of patient's judgement and insights: Fair - Mood Mood: Depressed - Affect Affect: Depressed - Speech Speech: Appropriate - Formal Thought Process Formal Thought Process: No Impairment Psychotic Thoughts and Behaviors: None - Suicidal Ideation Suicidal Ideation: No - Homicidal Ideation Homicidal Ideation: No Goal/Treatment Plan - Goal/Treatment Plan Need for Continued Stay: Remain at risks for inpatient hospitalization, Discharge may exacerbated symptoms, Severe functional impairment Progress Toward Problem(s) and Goals/Treatment Plan: Improving with treatment. Patient education Supportive therapy. CBT for relapse prevention. [place] for abstinence. Continue treatment as before. Estimated Date of D/C: 11/28/17 - Smoking Cessation Smoking Cessation Initiated: No
[2017-11-25] MEDS: Multiple Vitamins Tab PO SCH (09:16)
--- NOTE | 2017-11-25 19:48 | PCM.PYCHPN ---
Psychiatric Progress Note - Psychiatric Progress Note Patient seen today, length of contact: 15 minutes Patient Chief Complaint: I'm feeling much better. Problems Identified/Issues Discussed: Patient seen, chart reviewed, case discussed with the staff. Issues related to illness and treatment were discussed with the patient and staff. Reported compliant with treatment with no adverse affects. Tolerating treatment very well. Risk and benefits of medications were discussed with the patient patient understood and agreed. Reported feeling much better. Calm and cooperative, speech soft with good eye contact. Awake alert oriented 3, denied any delusions, any auditory of visual hallucinations, no suicidal ideations or homicidal ideations at the time of evaluation. Aftercare discussed with the patient. Medical Problems: None reported Diagnostic Results: Reviewed DSM 5 Symptoms Update: Improving with treatment Medication Change: No Medical Record Reviewed: Yes Mental Status Examination - Cognitive Function Orientation: Person, Place, Situation, Time Memory: Intact Attention: WNL Concentration: WNL Association: WN Fund of Knowledge: [facility] Decription of patient's judgement and insights: Fair - Mood Mood: Depressed (Much less than before) - Affect Affect: Other (Appropriate) - Speech Speech: Appropriate - Formal Thought Process Formal Thought Process: No Impairment Psychotic Thoughts and Behaviors: None - Suicidal Ideation Suicidal Ideation: No - Homicidal Ideation Homicidal Ideation: No Goal/Treatment Plan - Goal/Treatment Plan Need for Continued Stay: Remain at risks for inpatient hospitalization, Discharge may exacerbated symptoms, Severe functional impairment Progress Toward Problem(s) and Goals/Treatment Plan: Improving with treatment. Patient education Supportive therapy. CBT for relapse prevention. [place] for abstinence. Continue treatment as before. Estimated Date of D/C: 11/28/17 - Smoking Cessation Smoking Cessation Initiated: No
[2017-11-26] MEDS: Multiple Vitamins Tab PO SCH (09:16)
--- NOTE | 2017-11-26 14:39 | PCM.PYCHPN ---
Psychiatric Progress Note - Psychiatric Progress Note Patient seen today, length of contact: 15 minutes Patient Chief Complaint: I'm feeling much better. Problems Identified/Issues Discussed: Patient seen, chart reviewed, case discussed with the staff. Issues related to illness and treatment were discussed with the patient and staff. Reported compliant with treatment with no adverse affects. Tolerating treatment very well. Risk and benefits of medications were discussed with the patient patient understood and agreed. Reported feeling much better. Calm and cooperative, speech soft with good eye contact. Awake alert oriented 3, denied any delusions, any auditory of visual hallucinations, no suicidal ideations or homicidal ideations at the time of evaluation. Aftercare discussed with the patient. Medical Problems: None reported Diagnostic Results: Reviewed DSM 5 Symptoms Update: Improving with treatment Medication Change: No Medical Record Reviewed: Yes Mental Status Examination - Cognitive Function Orientation: Person, Place, Situation, Time Memory: Intact Attention: WNL Concentration: WNL Association: WN Fund of Knowledge: [facility] Decription of patient's judgement and insights: Fair - Mood Mood: Neutral - Affect Affect: Other (Appropriate) - Speech Speech: Appropriate - Formal Thought Process Formal Thought Process: No Impairment Psychotic Thoughts and Behaviors: None - Suicidal Ideation Suicidal Ideation: No - Homicidal Ideation Homicidal Ideation: No Goal/Treatment Plan - Goal/Treatment Plan Need for Continued Stay: Remain at risks for inpatient hospitalization, Discharge may exacerbated symptoms, Severe functional impairment Progress Toward Problem(s) and Goals/Treatment Plan: Improving with treatment. Patient education Supportive therapy. CBT for relapse prevention. [place] for abstinence. Continue treatment as before. Estimated Date of D/C: 11/28/17 - Smoking Cessation Smoking Cessation Initiated: No
[2017-11-27] MEDS: Multiple Vitamins Tab PO SCH (10:14)
--- NOTE | 2017-11-27 19:35 | PCM.PYCHPN ---
Psychiatric Progress Note - Psychiatric Progress Note Patient seen today, length of contact: 15 minutes Patient Chief Complaint: I'm feeling much better. Problems Identified/Issues Discussed: Patient seen, chart reviewed, case discussed with the staff. Issues related to illness and treatment were discussed with the patient and staff. Reported compliant with treatment with no adverse affects. Tolerating treatment very well. Risk and benefits of medications were discussed with the patient patient understood and agreed. Reported feeling much better. Calm and cooperative, speech soft with good eye contact. Awake alert oriented 3, denied any delusions, any auditory of visual hallucinations, no suicidal ideations or homicidal ideations at the time of evaluation. Aftercare discussed with the patient. Medical Problems: None reported Diagnostic Results: Reviewed DSM 5 Symptoms Update: Improving with treatment Medication Change: No Medical Record Reviewed: Yes Mental Status Examination - Cognitive Function Orientation: Person, Place, Situation, Time Memory: Intact Attention: WNL Concentration: WNL Association: [facility] Fund of Knowledge: [facility] Decription of patient's judgement and insights: Fair - Mood Mood: Neutral - Affect Affect: Other (Appropriate) - Speech Speech: Appropriate - Formal Thought Process Formal Thought Process: No Impairment Psychotic Thoughts and Behaviors: None - Suicidal Ideation Suicidal Ideation: No - Homicidal Ideation Homicidal Ideation: No Goal/Treatment Plan - Goal/Treatment Plan Need for Continued Stay: Remain at risks for inpatient hospitalization, Discharge may exacerbated symptoms, Severe functional impairment Progress Toward Problem(s) and Goals/Treatment Plan: Improving with treatment. Patient education Supportive therapy. CBT for relapse prevention. [place] for abstinence. Continue treatment as before. Patient will go to [facility] for follow-up care after discharge from the hospital. Estimated Date of D/C: 11/28/17 - Smoking Cessation Smoking Cessation Initiated: No
--- NOTE | 2017-11-28 08:44 | PCM.PYCHDC ---
Mental Status Examination - Mental Status Examination Orientation: Person, Place, Situation, Time Memory: Intact Mood: Anxious Affect: Constricted Speech: Appropriate Attention: WNL Concentration: WNL Association: WNL Fund of Knowledge: WNL Formal Thought Process: No Impairment Suicidal Ideation: No Current Homicidal Ideation?: No Discharge Summary - Discharge Note Reason for Hospitalization: Alcohol detox Consultations:: List each consultation separately and include: 1. Reason for request. 2. Findings. 3. Follow-up Summary of Hospital Course include:: 1. Description of specific treatment plan utilized for patients during their course of treatmen. 2. Summarize the time- course for resolution of acute symptoms and/or regressed behaviors. 3. Describe issues identified and worked on during hospitalization. 4. Describe medication utilized. 5. Describe medical problems identified and treated. 6. Reassessment of suicide risk Summary of Hospital Course: The pt was admitted and started on treatment with psychotherapy, support, psychoeducation and medications. [place] and CBT used. The pt attended groups and activities, as well as milieu therapy. All the risks and benefits of medications are discussed and the patient understood and agreed. The pt improved with the treatments provided. After care discussed with the patient. He will go to [facility]. - Final Diagnosis (DSM 5) Condition upon Discharge: IMPROVED DSM 5: Alcohol use disorder, severe, dependence Alcohol withdrawal Bipolar disorder Disposition: HOME/ ROUTINE Follow-up Treatment Plan: Continue below medications after discharge. Follow after care plan as discussed. Use relapse prevention skills Return to ER or call 911 if suicidal, homicidal or symptoms relapse. Stay away from stress, alcohol and drugs. See primary doctor regularly and get labs. Prescriptions/Medication Reconciliation: PARoxetine [Paxil] 20 mg PO DAILY #30 tab traZODone [Desyrel] 50 mg PO HS PRN #30 tab PRN Reason: Insomnia
[2017-11-28] MEDS: Multiple Vitamins Tab PO SCH (09:12)
[2017-11-28 09:54] VITALS: BP 118/84; RESP 18; TEMP 98.3
[2017-11-28 12:32] VITALS: PULSE 93; O2SAT 99
== END 2017-11-28 13:53 | disposition home or self-care (01) | DRG 751 ==
LOC: C.ER 17:43 → C.7D 11-23 00:12 → C.7T 11-24 14:11 → C.7D 11-24 14:35
DX: F10.230 Alcohol dependence with withdrawal, uncomplicated (principal); F31.9 Bipolar disorder, unspecified; F10.220 Alcohol dependence with intoxication, uncomplicated; Y90.0 Blood alcohol level of less than 20 mg/100 ml